=== PATIENT | female | born 1965 | race African-American/Black ===

== ENCOUNTER 2017-03-26 11:53 | Emergency (ER) | payer OTHER ==
[~2017-03-26] VITALS: Ht 162.6 cm; Wt 52.0 kg
[~2017-03-26 11:53] MED LIST: ACET325T11 PO; LORA-392 PO; PENI500T PO; VENTAER INH
[2017-03-26 11:55] VITALS: BP 124/84; PULSE 118; RESP 16; TEMP 98.3; O2SAT 98
--- NOTE | 2017-03-26 11:58 | PD ---
Physical Exam Time Seen by Provider: 11:57 Narrative 51 y/o female presents for evaluation of one hour duration of pruritic rash. recently wore a dress that someone gave her as a gift. Vital signs reviewed. Seen at triage desk. Awaiting bed placement. Data Data Last Documented VS Vital Signs Date Time Temp Pulse Resp B/P Pulse Ox O2 Delivery O2 Flow Rate FiO2 03/26/17 11:55 98.3 118 16 124/84 98 MDM Medical Record Reviewed: Yes Supervised Visit with SANTIAGO: No Itz Sanchez March 26, 2017 11:58
--- NOTE | 2017-03-26 12:21 | PD ---
HPI Chief Complaint: Skin Problem Time Seen by Provider: 12:21 Travel History International Travel<30 days: No Contact w/Intl Traveler<30days: No Traveled to known affect area: No History of Present Illness HPI 51-year-old female presents to the emergency Department with complaint of an itchy rash to the back of her left leg, right upper back, and right arm that started approximately 30 minutes ago. She said she's had a rash like this before and was told it was stress related. She was given a Medrol Dosepak and it went away. She reports using new detergent. Reports spraying herself with Febreeze yesterday because she didn't have her perfume. Denies airway edema, shortness of breath, difficulty breathing. Denies fever, vomiting. Has not taken any medications or tried any treatments to alleviate her symptoms. Allergies to aspirin, Benadryl, codeine. Has no medical complaints. No other modifying factors or associated signs and symptoms. PFSH Past Medical History Diminished Hearing: No Respiratory: Yes (ASTHMA) ?: Not Social History Alcohol Use: Yes (3 DRINKS A WEEK) Tobacco Use: Yes (/) Substance Use: No Allergies-Medications (Allergen,Severity, Reaction): Coded Allergies: Aspirin (Verified Allergy, Severe, ASTHMA, 03/26/17) Codeine (Verified Allergy, Mild, HIVES, 03/26/17) Benadryl (Verified Allergy, Unknown, 03/26/17) Reported Meds & Prescriptions Reported Meds & Active Scripts Active Deltasone (Prednisone) 20 Mg Tab 40 Mg PO DAILY 4 Days start 03/27/2017 Review of Systems Except as stated in HPI: all other systems reviewed are Neg Physical Exam Narrative GENERAL: Well-nourished, well-developed patient, in no acute distress; afebrile , nontoxic-appearing SKIN: Warm and dry. Generalized large and small areas of maculopapular rash to the posterior left leg, right upper back, right biceps area. No areas with cellulitic process. HEAD: Atraumatic. Normocephalic. EYES: Pupils equal and round. No injection or drainage. ENT: Mucosa pink and moist. Airway patent. EARS: Bilateral pinnae and external canals appear within normal limits. NECK: Trachea midline. No lymphadenopathy. CARDIOVASCULAR: Regular rate. RESPIRATORY: No accessory muscle use. No retractions or tachypnea. GASTROINTESTINAL: Flat. MUSCULOSKELETAL: No obvious deformities. No clubbing. No cyanosis. No edema. . NEUROLOGICAL: Awake and alert. Oriented 3. No obvious cranial nerve deficits. Motor grossly within normal limits. Normal speech. Moves all extremities. 5/5 strength to all extremities. PSYCHIATRIC: Appropriate mood and affect; insight and judgment normal. Data Data Last Documented VS Vital Signs Date Time Temp Pulse Resp B/P Pulse Ox O2 Delivery O2 Flow Rate FiO2 03/26/17 12:49 92 18 03/26/17 11:55 98.3 124/84 98 Orders Prednisone (Deltasone) (03/26/17 12:30) [facility] Medical Decision Making Medical Screen Exam Complete: Yes Emergency Medical Condition: Yes Medical Record Reviewed: Yes Differential Diagnosis Contact dermatitis, hives, nonspecific rash Narrative Course 51-year-old female with a nonspecific rash to the back of her left leg, right upper back, and right arm. She reports new laundry detergent and spraying herself with Febreeze yesterday. Denies airway edema, shortness of breath, difficulty breathing. The patient is in no acute distress and without retractions or tachypnea. States she's had a rash like this before and was given a Medrol Dosepak and went away. Patient allergic to Benadryl. Prednisone administered in the ER. Prednisone prescribed for home. Instructed patient to follow up with dermatology. Patient verbalizes understanding and agreement with treatment plan. Patient is medically cleared and stable for discharge. Discussed reasons to return to the emergency department. Instructed patient to follow up with primary care provider. Patient agrees with treatment plan. The patients vital signs are stable and the patient is stable for outpatient follow-up and treatment. Patient discharged home, stable and in no acute distress. Diagnosis Primary Impression: Rash and nonspecific skin eruption Referrals: [facility] Primary Care Physician Patient Instructions: Acute Rash (ED), General Instructions Departure Forms: Tests/Procedures, Work Release Enter return to work date: March 27, 2017 Additional Instructions: Take prednisone as prescribed [id number] topicals to reduce itch Follow-up with your primary care provider Return to the emergency department immediately with worsening of symptoms Med/Other Pt SpecificInfo: Prescription(s) given Scripts Prednisone (Deltasone)20 Mg Tab40 Mg PO DAILY 4 Days Ref 0 start 03/27/2017 Prov:Hoa Ellison 03/26/17 Disposition: 01 DISCHARGE HOME Condition: Stable Hoa Ellison March 26, 2017 12:21
[2017-03-26] MEDS ORDERED: PRED-503 PO (12:24)
[2017-03-26] MEDS ORDERED: predniSONE 20 MG TAB PO ONE (12:30)
== END 2017-03-26 12:55 | disposition home or self-care (01) ==
LOC: NEPK 11:53
DX: R21 Rash and other nonspecific skin eruption (principal)
CPT/HCPCS: 99282; J7512